=== PATIENT | female | born 1985 | race American Indian/Alaskan Native ===

== ENCOUNTER 2016-11-04 19:52 | Emergency (ER) | payer MEDICAID ==
[2016-11-04 20:25] VITALS: BP 126/78
--- NOTE | 2016-11-05 07:34 | XRay Report ---
LEFT ANKLE RADIOGRAPHS INDICATION: Left ankle lateral pain. Injury while in heels yesterday. COMPARISON: None similar. FINDINGS: AP, lateral and oblique left ankle radiographs demonstrate intact mortise, malleoli and talar dome contour. Mild soft tissue swelling may be present laterally. CONCLUSION: Left ankle soft tissue swelling/injury possible without acute bony abnormality, as described. Please correlate. Thank you for the opportunity to participate in this patient's care.
== END 2016-11-05 00:26 | disposition left against medical advice (07) ==
LOC: ED 19:52
DX: M25.572 Pain in left ankle and joints of left foot (principal); Z53.21 Procedure and treatment not carried out due to patient leaving prior to being seen by health care provider

== ENCOUNTER 2016-12-07 16:42 | Emergency (ER) | payer MEDICAID ==
[2016-12-07 16:51] VITALS: BP 131/87
--- NOTE | 2016-12-07 17:21 | Emergency Department Report ---
<VALERY HEATON - Last Filed: 12/07/16 18:47> ED Female HPI - General Chief complaint: Urogenital-Female Stated complaint: BACK PAIN/UNABLE TO URINATE Time Seen by Provider: 12/07/16 17:20 Source: patient Mode of arrival: Ambulatory Limitations: No Limitations - History of Present Illness Initial comments: Complaining of dysuria for the past 2-1/2 months, patient denies vaginal discharge, dyspareunia, pelvic pain, , or abdominal pain. But patient does complain of new onset bright red vaginal bleeding that started this morning. Patient is A3 area and MD Complaint: vaginal bleeding, dysuria - Related Data Home Medications Medication Instructions Recorded Confirmed Last Taken Amlodipine Besylate [Norvasc] 10 mg PO DAILY 09/20/14 04/22/16 03/24/16 05:00 10mg LORazepam 0.5 mg PO TID 09/20/14 04/22/16 03/23/16 21:00 .05mg Lisinopril 20 mg PO DAILY 09/20/14 04/22/16 03/24/16 05:00 20mg Quetiapine Fumarate [SEROquel XR] 300 mg PO HS 09/20/14 04/22/16 03/23/16 21:00 300mg Allergies Allergy/AdvReac Type Severity Reaction Status Date / Time No Known Allergies Allergy Verified 10/19/15 13:00 ED Review of Systems ROS: Stated complaint: BACK PAIN/UNABLE TO URINATE Other details as noted in HPI Constitutional: denies: chills, fever Eyes: denies: eye pain, eye discharge, vision change ENT: denies: ear pain, throat pain Gastrointestinal: denies: abdominal pain, nausea, vomiting, diarrhea, constipation, hematemesis, melena, hematochezia Genitourinary: other (vaginal bleeding started this morning). denies: urgency, dysuria, frequency, hematuria, discharge, abnormal menses, dyspareunia Musculoskeletal: denies: joint swelling, arthralgia ED Past Medical Hx - Past Medical History Previous Medical History?: Yes Hx Hypertension: Yes (2004) Hx Headaches / Migraines: Yes (MIGRAINES) Hx Psychiatric Treatment: (PTSD bipolar, manic) Hx Tuberculosis: No (POSITIVE SKIN TEST, NEG CXR) - Surgical History Additional Surgical History: - Social History Smoking Status: Current Every Day Smoker Substance Use Type: Alcohol, Marijuana - Medications Home Medications: Home Medications Medication Instructions Recorded Confirmed Last Taken Type Amlodipine Besylate [Norvasc] 10 mg PO DAILY 09/20/14 04/22/16 03/24/16 05:00 History 10mg LORazepam 0.5 mg PO TID 09/20/14 04/22/16 03/23/16 21:00 History .05mg Lisinopril 20 mg PO DAILY 09/20/14 04/22/16 03/24/16 05:00 History 20mg Quetiapine Fumarate [SEROquel XR] 300 mg PO HS 09/20/14 04/22/16 03/23/16 21:00 History 300mg ED Physical Exam - General Limitations: No Limitations General appearance: alert, in no apparent distress - Head Head exam: Present: atraumatic, normocephalic - Eye Eye exam: Present: normal appearance - ENT ENT exam: Present: mucous membranes moist - Neck Neck exam: Present: normal inspection - Respiratory Respiratory exam: Present: normal lung sounds bilaterally. Absent: respiratory distress - Cardiovascular Cardiovascular Exam: Present: regular rate, normal rhythm. Absent: systolic murmur, diastolic murmur, rubs, gallop - GI/Abdominal GI/Abdominal exam: Present: soft, normal bowel sounds. Absent: distended, tenderness, guarding, rebound, rigid - Extremities Exam Extremities exam: Present: normal inspection - Back Exam Back exam: Present: normal inspection, full ROM. Absent: tenderness, CVA tenderness (R), CVA tenderness (L) - Neurological Exam Neurological exam: Present: alert, oriented X3, CN II-XII intact - Psychiatric Psychiatric exam: Present: normal affect, normal mood - Skin Skin exam: Present: warm, dry, intact, normal color. Absent: rash ED Course Vital Signs 12/07/16 16:47 Temperature 98.1 F Pulse Rate 71 Respiratory 20 Rate Blood Pressure 131/87 O2 Sat by Pulse 100 Oximetry - Reevaluation(s) Reevaluation #1: 12/07/16 18:48 Care transferred to GEETA Galan at this time reviewed the patient's history and labs. Patient stable on her room at this time. ED Medical Decision Making - Lab Data Result diagrams: 12/07/16 17:31 12/07/16 17:31 Critical care attestation.: If time is entered above; I have spent that time in minutes in the direct care of this critically ill patient, excluding procedure time. ED Disposition Clinical Impression: Threatened Disposition: DISCHARGED TO HOME OR SELFCARE Condition: Stable Instructions: Threatened Miscarriage (ED) Additional Instructions: Follow-up with ferruler in 24 hours to repeat sonogram. If continuing to have a bleeding and you feel that your lightheadedness or dizzy report back to emergency. Referrals: [facility] [Outside] - 3-5 Days [facility] [place]Outside] - 3-5 Days NELSON PATE MD [Staff Physician] - 24 Hours PRIMARY [facility]ARE, [Primary Care Provider] - 24 Hours Forms: Work/School Release Form(ED) <ALPESH GALAN - Last Filed: 12/07/16 20:17> ED Medical Decision Making - Lab Data Result diagrams: 12/07/16 17:31 12/07/16 17:31 - Medical Decision Making Patient was received from GEETA Heaton. Ultrasound results has been returned with impression; no intrauterine identified this time. Differential diagnosis includes early in the normal or abnormal to include of unknown location/ectopic as well as biting his . Short interval clinical and sonographic follow- up are recommended. Dictated by Dr. Molina. Results has been notified to the patient. Patient was also notified to follow- up with her ferruler in 24 hours for repeat of sono and labs. Patient was instructed that if she continuous heavy bleeding to report back to emergency room. ED Disposition Is pt being admited?: No Does the pt Need Aspirin: No
[2016-12-07 17:58] LABS: Bilirubin,Urine NEG (Negative); Blood,Urine MOD (Negative); Ketones,Urine 20 mg/dL (Negative); Leukocyte Esterase,Urine NEG (Negative); Mucus,Urine FEW /HPF; Nitrite,Urine NEG (Negative); Protein,Urine <15 mg/dL mg/dL (Negative)
[2016-12-07 18:04] LABS: Basophils % (Auto) 0.2 % (0.0-1.8); Eosinophils % (Auto) 0.8 % (0.0-4.3); Hematocrit 39.7 % (30.3-42.9); Hemoglobin 13.3 gm/dl (10.1-14.3); Mean Corpuscular HGB Conc 34 % (30-34); Mean Corpuscular Hemoglobin 36 pg (28-32); Mean Corpuscular Volume 106 fl (79-97); Platelet Count 244 K/mm3 (140-440); Red Blood Count 3.76 M/mm3 (3.65-5.03); Red Cell Distribution Width 13.6 % (13.2-15.2); White Blood Count 10.4 K/mm3 (4.5-11.0)
[2016-12-07 18:17] LABS: Alanine Aminotransferase 12 units/L (7-56); Albumin 4.8 g/dL (3.9-5); Albumin/Globulin Ratio 1.5 %; Alkaline Phosphatase 80 units/L (35-129); Anion Gap 23 mmol/L; BUN/Creatinine Ratio 11.42; Blood Urea Nitrogen 8 mg/dL (7-17); Calcium 9.6 mg/dL (8.4-10.2); Carbon Dioxide 18 mmol/L (22-30); Chloride 103.5 mmol/L (98-107); Glucose 93 mg/dL (65-100); Potassium 3.6 mmol/L (3.6-5.0); Sodium 141 mmol/L (137-145)
--- NOTE | 2016-12-07 19:27 | Ultrasound Report ---
FINAL REPORT EXAM: US OB TRANSVAGINAL HISTORY: preg vag bleed COMPARISONS: None. FINDINGS: Transvaginal grayscale and color Doppler ultrasound evaluation of the pelvis The uterus is anteverted and measures 8.2 x 4.2 x 5.4 cm. Mildly heterogeneous endometrium measures up to approximately 2-3 millimeters in thickness. A 2 millimeter anechoic region is present at the fundal aspect of the endometrium. No obvious gestational sac or other evidence of intrauterine at this time. The ovaries are not visualized on transabdominal or transvaginal examination. IMPRESSION: No intrauterine identified at this time. Differential diagnosis includes early normal or abnormal to include of unknown location/ectopic as well as spontaneous . Short interval clinical and sonographic follow-up are recommended.
--- NOTE | 2016-12-07 19:33 | Ultrasound Report ---
FINAL REPORT EXAM: US OB \T\lt; = 14 WEEKS FETUS HISTORY: preg vag bleed COMPARISONS: None. FINDINGS: Transabdominal grayscale ultrasound evaluation of the pelvis The uterus is anteverted and measures 7.8 x 3.5 x 4.8 cm. Mildly heterogeneous endometrium measures up to approximately 2-3 millimeters in thickness. A 2 millimeter anechoic region is present at the fundal aspect of the endometrium. No obvious gestational sac or other evidence of intrauterine at this time. The ovaries are not visualized on transabdominal or transvaginal examination. IMPRESSION: No intrauterine identified at this time. Differential diagnosis includes early normal or abnormal to include of unknown location/ectopic as well as spontaneous . Short interval clinical and sonographic follow-up are recommended.
== END 2016-12-07 20:29 | disposition home or self-care (01) ==
LOC: ED 16:42
DX: O20.0 Threatened abortion (principal); O16.1 Unspecified maternal hypertension, first trimester; G43.909 Migraine, unspecified, not intractable, without status migrainosus; O99.331 Smoking (tobacco) complicating pregnancy, first trimester; O99.321 Drug use complicating pregnancy, first trimester; F12.10 Cannabis abuse, uncomplicated; F31.9 Bipolar disorder, unspecified; F43.10 Post-traumatic stress disorder, unspecified; Z3A.14 14 weeks gestation of pregnancy
CPT/HCPCS: 36415; 76801; 76817; 80053; 81001; 81025; 84702; 85025

== ENCOUNTER 2016-12-14 21:11 | Emergency (ER) | payer MEDICAID ==
[2016-12-14 22:45] LABS: Bilirubin,Urine NEG (Negative); Blood,Urine NEG (Negative); Ketones,Urine NEG (Negative); Leukocyte Esterase,Urine NEG (Negative); Nitrite,Urine NEG (Negative); Protein,Urine <15 mg/dL mg/dL (Negative); RBC,Urine < 1.0 /HPF (0.0-6.0); Urobilinogen,Urine < 2.0 mg/dL (<2.0); WBC,Urine < 1.0 /HPF (0.0-6.0)
[2016-12-14 23:39] LABS: Hematocrit 37.8 % (30.3-42.9); Hemoglobin 12.6 gm/dl (10.1-14.3); Mean Corpuscular HGB Conc 34 % (30-34); Mean Corpuscular Hemoglobin 36 pg (28-32); Mean Corpuscular Volume 107 fl (79-97); Platelet Count 238 K/mm3 (140-440); Red Blood Count 3.52 M/mm3 (3.65-5.03); Red Cell Distribution Width 13.6 % (13.2-15.2); White Blood Count 7.1 K/mm3 (4.5-11.0)
--- NOTE | 2016-12-14 23:52 | Ultrasound Report ---
FINAL REPORT EXAM: US OB \T\lt; = 14 WEEKS FETUS HISTORY: vag bleed miscarriage TECHNIQUE: Transabdominal pelvic ultrasound was performed in multiple grayscale sonographic images were obtained of the uterus and adnexa. PRIORS: Endovaginal ultrasound 12/14/2016 FINDINGS: Uterus measures approximately 7.9 x 3.7 x 6.8 centimeters. A gestational sac is not identified in the uterus, or elsewhere. Ovaries were not identified. IMPRESSION: 1. Gestational sac is not identified in the uterus, or elsewhere. Possibility of ectopic is not excluded. The patient can be further assessed with serial quantitative beta HCG and repeat ultrasound if indicated. 2. Please refer to report from endovaginal ultrasound from 12/14/2016 for additional information.
--- NOTE | 2016-12-14 23:53 | Ultrasound Report ---
FINAL REPORT EXAM: US OB TRANSVAGINAL HISTORY: vag bleed miscarriage TECHNIQUE: Endovaginal ultrasound was performed. Multiple grayscale sonographic images were obtained of the uterus and adnexa PRIORS: Transabdominal ultrasound from 12/14/2016 and endovaginal ultrasound from 12/07/2016 FINDINGS: Endometrial stripe thickness is approximately 2.6 millimeters. A gestational sac is not identified in the uterus, or elsewhere. No free fluid is seen in the images provided. Right ovary measures approximately 2.2 x 1.4 x 1.8 centimeters. Left ovary was not visualized. IMPRESSION: 1. A gestational sac is not identified in the uterus, or elsewhere. Possibility of ectopic is not excluded. The patient can be further assessed with serial quantitative beta HCG and repeat ultrasound if indicated. 2. Nonvisualization of left ovary. 3. Please refer to report from transabdominal pelvic ultrasound from 12/14/2016 for additional information.
[2016-12-15] MEDS ORDERED: MOTRIN PO ONE (03:41)
[2016-12-15] MEDS ORDERED: NORCO 5/325 PO ONE (03:41)
--- NOTE | 2016-12-15 03:42 | Emergency Department Report ---
ED General Adult HPI - General Chief complaint: Abdominal Pain Stated complaint: MISCARRIAGE/PAIN Time Seen by Provider: 12/15/16 03:29 Source: patient, RN notes reviewed, old records reviewed Mode of arrival: Ambulatory Limitations: No Limitations - History of Present Illness Initial comments: This is a 31-year-old female. She is previously unknown to me. The patient is 9, para 5. The patient presents to the ER with persistent left lower quadrant abdominal pain and reported history of vaginal bleeding. The patient was seen for similar complaints on December 07. At that time, she had an ultrasound which did not demonstrate an intrauterine . Quantitative hCG was 283. Patient presents to the ER with persistent one week of left lower quadrant pain. Complains of cramping and pain. Pain is sharp and achy and located in the left lower quadrant. It decreases with Tylenol, Motrin, and over-the- counter Midol. It increases with palpation. Patient denies fevers, chills, chest pain, shortness of breath. She admits to vaginal bleeding. Admits to minimal dysuria. -: Gradual Location: abdomen Improves with: medication Worsens with: movement Associated Symptoms: denies: confusion, chest pain, cough, diaphoresis, fever/ chills, headaches, loss of appetite, malaise - Related Data Home Medications Medication Instructions Recorded Confirmed Last Taken Amlodipine Besylate [Norvasc] 10 mg PO DAILY 09/20/14 04/22/16 03/24/16 05:00 10mg LORazepam 0.5 mg PO TID 09/20/14 04/22/16 03/23/16 21:00 .05mg Lisinopril 20 mg PO DAILY 09/20/14 04/22/16 03/24/16 05:00 20mg Quetiapine Fumarate [SEROquel XR] 300 mg PO HS 09/20/14 04/22/16 03/23/16 21:00 300mg Previous Rx's Medication Instructions Recorded Last Taken Type Ketorolac [Toradol] 10 mg PO Q6H PRN #20 tablet 12/15/16 Unknown Rx Ondansetron [Zofran Odt] 4 mg PO QID PRN #20 tab.rapdis 12/15/16 Unknown Rx oxyCODONE [Roxicodone] 5 mg PO Q6HR PRN #15 tablet 12/15/16 Unknown Rx Allergies Allergy/AdvReac Type Severity Reaction Status Date / Time No Known Allergies Allergy Verified 10/19/15 13:00 ED Review of Systems ROS: Stated complaint: MISCARRIAGE/PAIN Other details as noted in HPI Constitutional: denies: fever Eyes: denies: vision change ENT: denies: epistaxis Respiratory: denies: cough Cardiovascular: denies: chest pain Gastrointestinal: abdominal pain Genitourinary: as per HPI, abnormal menses Skin: denies: lesions Neurological: denies: weakness Psychiatric: anxiety ED Past Medical Hx - Past Medical History Previous Medical History?: Yes Hx Hypertension: Yes (2004) Hx Headaches / Migraines: Yes (MIGRAINES) Hx Psychiatric Treatment: (PTSD bipolar, manic) Hx Tuberculosis: No (POSITIVE SKIN TEST, NEG CXR) - Surgical History Past Surgical History?: Yes Additional Surgical History: - Social History Smoking Status: Current Every Day Smoker Substance Use Type: None, Marijuana - Medications Home Medications: Home Medications Medication Instructions Recorded Confirmed Last Taken Type Amlodipine Besylate [Norvasc] 10 mg PO DAILY 09/20/14 04/22/16 03/24/16 05:00 History 10mg LORazepam 0.5 mg PO TID 09/20/14 04/22/16 03/23/16 21:00 History .05mg Lisinopril 20 mg PO DAILY 09/20/14 04/22/16 03/24/16 05:00 History 20mg Quetiapine Fumarate [SEROquel XR] 300 mg PO HS 09/20/14 04/22/16 03/23/16 21:00 History 300mg Ketorolac [Toradol] 10 mg PO Q6H PRN #20 tablet 12/15/16 Unknown Rx Ondansetron [Zofran Odt] 4 mg PO QID PRN #20 tab.rapdis 12/15/16 Unknown Rx oxyCODONE [Roxicodone] 5 mg PO Q6HR PRN #15 tablet 12/15/16 Unknown Rx ED Physical Exam - General Limitations: No Limitations General appearance: alert, in no apparent distress - Head Head exam: Present: atraumatic, normocephalic - Eye Eye exam: Present: normal appearance, EOMI. Absent: nystagmus - ENT ENT exam: Present: normal exam, normal orophraynx, mucous membranes moist, normal external ear exam - Neck Neck exam: Present: normal inspection, full ROM. Absent: tenderness, meningismus - Respiratory Respiratory exam: Present: normal lung sounds bilaterally. Absent: respiratory distress, wheezes, rales, rhonchi, stridor, chest wall tenderness, accessory muscle use, decreased breath sounds, prolonged expiratory - Cardiovascular Cardiovascular Exam: Present: regular rate, normal rhythm, normal heart sounds. Absent: bradycardia, tachycardia, irregular rhythm, systolic murmur, diastolic murmur, rubs, gallop - GI/Abdominal GI/Abdominal exam: Present: soft, tenderness, normal bowel sounds, other (there is left lower quadrant tenderness. No rebound, guarding or peritoneal signs). Absent: distended, guarding, rebound, rigid, pulsatile mass - External exam: Present: normal external exam Speculum exam: Present: normal speculum exam. Absent: vaginal bleeding Bi-manual exam: Present: adnexal tenderness, other (escorted by RN radha boone) - Extremities Exam Extremities exam: Present: normal inspection, full ROM, normal capillary refill. Absent: tenderness, pedal edema, calf tenderness - Back Exam Back exam: Present: normal inspection, full ROM. Absent: tenderness, CVA tenderness (R), CVA tenderness (L), muscle spasm, paraspinal tenderness, vertebral tenderness - Neurological Exam Neurological exam: Present: alert, oriented X3, normal gait, other (Extraocular movements intact. Tongue midline. No facial droop. Facial sensation intact to light touch in the V1, V2, V3 distribution bilaterally. 5 and 5 strength in 4 extremities.. Sensation is intact to light touch in 4 extremities.). Absent : motor sensory deficit - Psychiatric Psychiatric exam: Present: normal affect, normal mood - Skin Skin exam: Present: warm, dry, intact, normal color. Absent: rash ED Course Vital Signs 12/14/16 12/15/16 12/15/16 21:39 03:47 03:56 Temperature 98.4 F 98.4 F Pulse Rate 79 60 Respiratory 20 20 Rate Blood Pressure 102/59 Blood Pressure 129/58 [Left] O2 Sat by Pulse 100 100 100 Oximetry 12/15/16 12/15/16 12/15/16 04:08 04:09 05:08 Temperature Pulse Rate Respiratory 20 20 20 Rate Blood Pressure Blood Pressure [Left] O2 Sat by Pulse Oximetry 12/15/16 05:09 Temperature Pulse Rate Respiratory 20 Rate Blood Pressure Blood Pressure [Left] O2 Sat by Pulse Oximetry - Reevaluation(s) Reevaluation #1: 12/15/16 04:12 differential diagnosis: Ovarian cyst, threatened miscarriage, urinary tract infection, dysfunctional uterine bleeding Assessment and plan: 31-year-old female who reports left lower quadrant pain, persistent vaginal bleeding. The patient is afebrile with reassuring vital signs. Quantitative hCG 3.67, this is less than 4, therefore, the patient has most likely completed her miscarriage. Her transabdominal ultrasound today did not demonstrate a gestational sac. Left ovary is not visualized. She is found to be Rh-. The patient will be given RhoGAM. We will perform a gynecologic examination. Her pain will be treated symptomatically. Reevaluation #2: 12/15/16 05:42 Patient tolerating liquid feeds. Mild adnexal tenderness. RhoGAM administered. No fever. Patient will be discharged with pain medication, nausea medication, instructions to follow up with outpatient gynecology. ED Medical Decision Making - Lab Data Result diagrams: 12/14/16 22:55 Vital Signs 12/14/16 12/15/16 12/15/16 21:39 03:47 03:56 Temperature 98.4 F 98.4 F Pulse Rate 79 60 Respiratory 20 20 Rate Blood Pressure 102/59 Blood Pressure 129/58 [Left] O2 Sat by Pulse 100 100 100 Oximetry 12/15/16 12/15/16 04:08 04:09 Temperature Pulse Rate Respiratory 20 20 Rate Blood Pressure Blood Pressure [Left] O2 Sat by Pulse Oximetry Lab Results 12/14/16 12/14/16 12/14/16 Range/Units 22:00 22:46 22:55 WBC 7.1 (4.5-11.0) K/mm3 RBC 3.52 L (3.65-5.03) M/mm3 Hgb 12.6 (10.1-14.3) gm/dl Hct 37.8 (30.3-42.9) % MCV 107 H (79-97) fl MCH 36 H (28-32) pg MCHC 34 (30-34) % RDW 13.6 (13.2-15.2) % Plt Count 238 (140-440) K/mm3 HCG, Quant (0-4) mIU/mL Urine Color Straw (Yellow) Urine Turbidity Clear (Clear) Urine pH 7.0 (5.0-7.0) Ur Specific [place] 1.003 (1.003-1.030) Urine Protein <15 mg/dl (Negative) mg/dL Urine Glucose (UA) Neg (Negative) mg/dL Urine Ketones Neg (Negative) mg/dL Urine Blood Neg (Negative) Urine Nitrite Neg (Negative) Urine Bilirubin Neg (Negative) Urine Urobilinogen < 2.0 (<2.0) mg/dL Ur Leukocyte Esterase Neg (Negative) Urine WBC (Auto) < 1.0 (0.0-6.0) /HPF Urine RBC (Auto) < 1.0 (0.0-6.0) /HPF U Epithel Cells (Auto) < 1.0 (0-13.0) /HPF Blood Type O NEGATIVE Antibody Screen TNR SOLE Antibody Screen Negative 12/14/16 Range/Units 22:55 WBC (4.5-11.0) K/mm3 RBC (3.65-5.03) M/mm3 Hgb (10.1-14.3) gm/dl Hct (30.3-42.9) % MCV (79-97) fl MCH (28-32) pg MCHC (30-34) % RDW (13.2-15.2) % Plt Count (140-440) K/mm3 HCG, Quant 3.67 (0-4) mIU/mL Urine Color (Yellow) Urine Turbidity (Clear) Urine pH (5.0-7.0) Ur Specific [place] (1.003-1.030) Urine Protein (Negative) mg/dL Urine Glucose (UA) (Negative) mg/dL Urine Ketones (Negative) mg/dL Urine Blood (Negative) Urine Nitrite (Negative) Urine Bilirubin (Negative) Urine Urobilinogen (<2.0) mg/dL Ur Leukocyte Esterase (Negative) Urine WBC (Auto) (0.0-6.0) /HPF Urine RBC (Auto) (0.0-6.0) /HPF U Epithel Cells (Auto) (0-13.0) /HPF Blood Type Antibody Screen SOLE Antibody Screen - Radiology Data Radiology results: report reviewed, image reviewed Obstetrics/transvaginal ultrasound demonstrates no evidence of gestational sac. Nonvisualization of the left ovary. Critical care attestation.: If time is entered above; I have spent that time in minutes in the direct care of this critically ill patient, excluding procedure time. ED Disposition Clinical Impression: Abdominal pain Disposition: - TO HOME OR SELFCARE Is pt being admited?: No Does the pt Need Aspirin: No Condition: Stable Instructions: Spontaneous Miscarriage (ED) Additional Instructions: Symptoms most likely coming from dysfunctional uterine bleeding or completed miscarriage. Take the pain medication, nausea medication as directed. Cultures were sent today, results will be available in the next 3-5 days. Have a primary care doctor or javascript engineer contact the medical records department to obtain culture results. Return to the ER right away with new pain, worsened pain, migration of pain, fevers, chills, chest pain, shortness of breath, confusion, intractable nausea or vomiting, inability to tolerate liquid feeds. Prescriptions: Ketorolac [Toradol] 10 mg PO Q6H PRN #20 tablet PRN Reason: Pain Ondansetron [Zofran Odt] 4 mg PO QID PRN #20 tab.rapdis PRN Reason: Nausea oxyCODONE [Roxicodone] 5 mg PO Q6HR PRN #15 tablet PRN Reason: Pain Referrals: PRIMARY CAREMD [Primary Care Provider] - 3-5 Days [facility] [Provider Group] - 3-5 Days [facility] [Provider Group] - 3-5 Days [facility] [Provider Group] - 3-5 Days
[2016-12-15 03:48] VITALS: BP 129/58
== END 2016-12-15 07:10 | disposition home or self-care (01) ==
LOC: ED 21:11
DX: R10.32 Left lower quadrant pain (principal); I10 Essential (primary) hypertension; G43.909 Migraine, unspecified, not intractable, without status migrainosus; F31.9 Bipolar disorder, unspecified; F17.200 Nicotine dependence, unspecified, uncomplicated; F12.10 Cannabis abuse, uncomplicated
CPT/HCPCS: 36415; 76801; 76817; 81001; 84702; 85027; 86850; 86900; 86901; 87210; 87591; 99284; J2790

== ENCOUNTER 2017-04-13 09:46 | Emergency (ER) | payer MEDICAID ==
[2017-04-13 10:36] VITALS: BP 128/79
--- NOTE | 2017-04-13 11:14 | Emergency Department Report ---
HPI - General Chief Complaint: Dental/Oral Time Seen by Provider: 04/13/17 11:09 - HPI HPI: Patient reports that she has abscess in her mouth that's been ongoing. She said she has had toothache and she called dentist and they're not be able to see her on so next . Patient states that she is having pain 10 out of 10 that's achy worse with eating. She denies any fever or chills. Denies any nausea or vomiting. Denies any chest pain or shortness of breath. Denies any difficulty breathing or sore throat. Denies any nasal congestion or sinus congestion. Toothache has been ongoing and abscess started getting worse to her left upper and lower tooth with swelling to her left facial area yesterday. She states that she tried taking some [id number] medication but it did not help. ED Past Medical Hx - Past Medical History Previous Medical History?: Yes Hx Hypertension: Yes (2004) Hx Headaches / Migraines: Yes (MIGRAINES) Hx Psychiatric Treatment: (PTSD bipolar, manic) Hx Tuberculosis: No (POSITIVE SKIN TEST, NEG CXR) - Surgical History Past Surgical History?: Yes Additional Surgical History: - Family History Family history: hypertension - Social History Smoking Status: Current Every Day Smoker Substance Use Type: None Other Social History: Single female - Medications Home Medications: Home Medications Medication Instructions Recorded Confirmed Last Taken Type Amlodipine Besylate [Norvasc] 10 mg PO DAILY 09/20/14 04/22/16 03/24/16 05:00 History 10mg LORazepam 0.5 mg PO TID 09/20/14 04/22/16 03/23/16 21:00 History .05mg Lisinopril 20 mg PO DAILY 09/20/14 04/22/16 03/24/16 05:00 History 20mg Quetiapine Fumarate [SEROquel XR] 300 mg PO HS 09/20/14 04/22/16 03/23/16 21:00 History 300mg Ketorolac [Toradol] 10 mg PO Q6H PRN #20 tablet 12/15/16 Unknown Rx Ondansetron [Zofran Odt] 4 mg PO QID PRN #20 tab.rapdis 12/15/16 Unknown Rx oxyCODONE [Roxicodone] 5 mg PO Q6HR PRN #15 tablet 12/15/16 Unknown Rx Clindamycin [Clindamycin CAP] 300 mg PO Q8H #30 cap 04/13/17 Unknown Rx Fluconazole [Diflucan TAB] 150 mg PO ONCE PRN #1 tablet 04/13/17 Unknown Rx HYDROcodone/APAP 5-325 [[place] 1 each PO Q8HR PRN #15 tablet 04/13/17 Unknown Rx 5/325] Ibuprofen [Motrin] 600 mg PO Q8H PRN #15 tablet 04/13/17 Unknown Rx ED Review of Systems ROS: Stated complaint: ABCESS IN MOUTH Other details as noted in HPI Comment: All other systems reviewed and negative Constitutional: no symptoms reported Eyes: denies: eye pain ENT: dental pain. denies: ear pain, throat pain, congestion Respiratory: no symptoms reported Cardiovascular: denies: chest pain, palpitations, dyspnea on exertion, edema, syncope, paroxysmal nocturnal dyspnea Gastrointestinal: denies: nausea, vomiting Musculoskeletal: denies: back pain, arthralgia Skin: denies: rash Neurological: denies: headache Physical Exam - Physical Exam Vital Signs: Vital Signs 04/13/17 10:32 Temperature 98.1 F Pulse Rate 69 Blood Pressure 128/79 O2 Sat by Pulse 100 Oximetry Respirations of 17 General: This is a 32-year-old female well-nourished well-developed in no acute distress. Physical Exam: Head: Normocephalic, atraumatic, no abrasion, no bruising and no contusion. Eyes: Biateral pupils equal and reactive to light, bilateral EOM intact.. Bilateral conjunctival and sclera without injection, normal accommodation. Ears: Bilateral EAC without any redness drainage or swelling,Bilateral TM pearly grady, bilateral tragus is normal and nontender. No auricular abnormality. No Mastoid bones tenderness. Nose: Moist, normal mucosa. No maxillary or frontal sinus tenderness. Mouth: Moist, no pharyngeal erythema or exudate. No peritonsillar abscess. Uvula is midline and oral airways patent. tongue is normal. Noted dental caries widespread. Multiple missing tooth.. Dental tenderness to left upper and lower back tooth left facial swelling. Positive cellulitis with mild induration. Positive gingivitis. Positive tenderness to gum. Neck: Supple, No Cervical adenopathy, full range of motion and no C-spine tenderness. No swelling or tracheal deviation Cardiovascular: S1, S2. Regular rate and rhythm. No murmur. Capillary refill is less then 3 seconds. Lungs: Clear to auscultate bilaterally. No rhonchi, wheezes or rales. No chest wall tenderness Extremities: No clubbing, cyanosis or edema. +2 pulses. No neurovascular compromise Skin: Clean, dry and intact. No rash or lesions. Psych: Normal mood and behavior. ED Course Vital Signs 04/13/17 10:32 Temperature 98.1 F Pulse Rate 69 Blood Pressure 128/79 O2 Sat by Pulse 100 Oximetry Respirations at 17 - Reevaluation(s) Reevaluation #1: 04/13/17 11:14 Normal ED stay. ED Medical Decision Making - Medical Decision Making Patient here reports that she is having toothache that started worth since yesterday. Physical findings for widespread dental caries probably gingivitis, oral cellulitis and swelling of left facial area. Patient with also multiple missing tooth. I discussed with patient diagnosis and treatment plan and she voiced understanding. I discussed the patient CLINDAMYCIN AND SHE IS REQUESTING DIFLUCAN TO PREVENT YEAST INFECTION. PATIENT WAS UNDERSTANDING THE TREATMENT PLAN AND DIAGNOSIS AND DISCHARGED HOME IN STABLE CONDITION WITH PRESCRIPTION FOR CLINDAMYCIN, DIFLUCAN for yeast PROPHYLAXIS, [place] and Motrin. I also discussed the patient that she needs to call [facility] dental clinic because I think she'll be able to get an appointment at a sooner date. Critical care attestation.: If time is entered above; I have spent that time in minutes in the direct care of this critically ill patient, excluding procedure time. ED Disposition Clinical Impression: Toothache, Gingivitis, Dental caries, Cellulitis and abscess of oral soft tissues Teeth missing due to periodontal disease Qualifiers: Tooth loss class: unspecified tooth loss Qualified Code(s): K08.129 - Complete loss of teeth due to periodontal diseases, unspecified class Disposition: DC-01 TO HOME OR SELFCARE Is pt being admited?: No Does the pt Need Aspirin: No Condition: Stable Instructions: Dental Abscess (ED), Cellulitis (ED), Dental Caries (ED), Gingivitis (ED), Toothache (ED) Additional Instructions: Please call [facility] dental clinic today to schedule an appointment for evaluation and treatment Please do not take [place] while driving or operating heavy machinery as this medication causes drowsiness clindamycin antibiotic as instructed Please gargle twice daily with Listerine mouthwash for gum care. Prescriptions: Clindamycin [Clindamycin CAP] 300 mg PO Q8H #30 cap Fluconazole [Diflucan TAB] 150 mg PO ONCE PRN #1 tablet PRN Reason: Yeast HYDROcodone/APAP 5-325 [[place] 5/325] 1 each PO Q8HR PRN #15 tablet PRN Reason: Pain Ibuprofen [Motrin] 600 mg PO Q8H PRN #15 tablet PRN Reason: Pain Referrals: PRIMARY CARE, [Primary Care Provider] - 2-3 Days [facility] [Outside] - 2-3 Days Forms: Work/School Release Form(ED)
== END 2017-04-13 18:41 | disposition home or self-care (01) ==
LOC: ED 09:46
DX: K05.10 Chronic gingivitis, plaque induced (principal); K12.2 Cellulitis and abscess of mouth; K02.9 Dental caries, unspecified; I10 Essential (primary) hypertension; G43.909 Migraine, unspecified, not intractable, without status migrainosus; F31.9 Bipolar disorder, unspecified; F17.200 Nicotine dependence, unspecified, uncomplicated
CPT/HCPCS: 99282

== ENCOUNTER 2017-06-08 10:28 | Emergency (ER) | payer MEDICAID | END 2017-06-08 10:29 | disposition left against medical advice (07) | LOC: ED 10:28 | DX: N89.8 Other specified noninflammatory disorders of vagina (principal); Z53.21 Procedure and treatment not carried out due to patient leaving prior to being seen by health care provider ==

== ENCOUNTER 2018-11-29 22:33 | Emergency (ER) | payer MEDICAID ==
[2018-11-29 22:39] VITALS: BP 136/79
[2018-11-30] MEDS ORDERED: XYLOCAINE 1% 20 mL INFILTRATI ONE (01:21)
[2018-11-30] MEDS ORDERED: XYLOCAINE 2% INFILTRATI ONE (01:24)
--- NOTE | 2018-11-30 02:06 | Emergency Department Report ---
- General Chief complaint: Skin/Abscess/Foreign Body Stated complaint: BOIL RIGHT ARMPIT Time Seen by Provider: 11/30/18 01:11 Source: patient Mode of arrival: Ambulatory Limitations: No Limitations - History of Present Illness Initial comments: pt is a 33 yo female who presents to the ED with c/o knot to the right axilla that began on 11/27/18. The patient states it has been getting larger. She states she does shave her armpits. The patient states she has a hx of Hidradenitis suppurativa. She states that she had the left axilla exicised and a skin graft placed by a plastic surgeon but has not had the right axilla done. She states she has been to the ER previously where they tried to do an I&D but nothing would drain. she denies any fever or drainage. she is currently 36 weeks . - Related Data Home Medications Medication Instructions Recorded Confirmed Last Taken Amlodipine Besylate [Norvasc] 10 mg PO DAILY 09/20/14 04/22/16 03/24/16 05:00 10mg LORazepam 0.5 mg PO TID 09/20/14 04/22/16 03/23/16 21:00 .05mg Lisinopril 20 mg PO DAILY 09/20/14 04/22/16 03/24/16 05:00 20mg Quetiapine Fumarate [SEROquel XR] 300 mg PO HS 09/20/14 04/22/16 03/23/16 21:00 300mg Previous Rx's Medication Instructions Recorded Last Taken Type Ketorolac [Toradol] 10 mg PO Q6H PRN #20 tablet 12/15/16 Unknown Rx Ondansetron [Zofran Odt] 4 mg PO QID PRN #20 tab.rapdis 12/15/16 Unknown Rx oxyCODONE [Roxicodone] 5 mg PO Q6HR PRN #15 tablet 12/15/16 Unknown Rx Clindamycin [Clindamycin CAP] 300 mg PO Q8H #30 cap 04/13/17 Unknown Rx Fluconazole [Diflucan TAB] 150 mg PO ONCE PRN #1 tablet 04/13/17 Unknown Rx HYDROcodone/APAP 5-325 [[place] 1 each PO Q8HR PRN #15 tablet 04/13/17 Unknown Rx 5/325] Ibuprofen [Motrin] 600 mg PO Q8H PRN #15 tablet 04/13/17 Unknown Rx Acetaminophen [Acetaminophen ER 650 mg PO Q8HR PRN #14 tablet.er 11/30/18 Unknown Rx TAB] cephALEXin [Keflex] 500 mg PO Q12HR 7 Days #14 cap 11/30/18 Unknown Rx Allergies Allergy/AdvReac Type Severity Reaction Status Date / Time No Known Allergies Allergy Verified 10/19/15 13:00 Abscess Boil HPI - HPI Chief Complaint: Skin/Abscess/Foreign Body Stated Complaint: BOIL RIGHT ARMPIT Time Seen by Provider: 11/30/18 01:11 Home Medications: Home Medications Medication Instructions Recorded Confirmed Last Taken Amlodipine Besylate [Norvasc] 10 mg PO DAILY 09/20/14 04/22/16 03/24/16 05:00 10mg LORazepam 0.5 mg PO TID 09/20/14 04/22/16 03/23/16 21:00 .05mg Lisinopril 20 mg PO DAILY 09/20/14 04/22/16 03/24/16 05:00 20mg Quetiapine Fumarate [SEROquel XR] 300 mg PO HS 09/20/14 04/22/16 03/23/16 21:00 300mg Previous Rx's Medication Instructions Recorded Last Taken Type Ketorolac [Toradol] 10 mg PO Q6H PRN #20 tablet 12/15/16 Unknown Rx Ondansetron [Zofran Odt] 4 mg PO QID PRN #20 tab.rapdis 12/15/16 Unknown Rx oxyCODONE [Roxicodone] 5 mg PO Q6HR PRN #15 tablet 12/15/16 Unknown Rx Clindamycin [Clindamycin CAP] 300 mg PO Q8H #30 cap 04/13/17 Unknown Rx Fluconazole [Diflucan TAB] 150 mg PO ONCE PRN #1 tablet 04/13/17 Unknown Rx HYDROcodone/APAP 5-325 [[place] 1 each PO Q8HR PRN #15 tablet 04/13/17 Unknown Rx 5/325] Ibuprofen [Motrin] 600 mg PO Q8H PRN #15 tablet 04/13/17 Unknown Rx Acetaminophen [Acetaminophen ER 650 mg PO Q8HR PRN #14 tablet.er 11/30/18 Unknown Rx TAB] cephALEXin [Keflex] 500 mg PO Q12HR 7 Days #14 cap 11/30/18 Unknown Rx Allergies/Adverse Reactions: Allergies Allergy/AdvReac Type Severity Reaction Status Date / Time No Known Allergies Allergy Verified 10/19/15 13:00 ED Review of Systems ROS: Stated complaint: BOIL RIGHT ARMPIT Other details as noted in HPI Comment: All other systems reviewed and negative ED Past Medical Hx - Past Medical History Previous Medical History?: Yes Hx Hypertension: Yes (2005) Hx Headaches / Migraines: Yes (MIGRAINES) Hx Psychiatric Treatment: (PTSD bipolar, manic) Hx Tuberculosis: No (POSITIVE SKIN TEST, NEG CXR) - Surgical History Past Surgical History?: Yes Additional Surgical History: x1 - Social History Smoking Status: Current Every Day Smoker Substance Use Type: None - Medications Home Medications: Home Medications Medication Instructions Recorded Confirmed Last Taken Type Amlodipine Besylate [Norvasc] 10 mg PO DAILY 09/20/14 04/22/16 03/24/16 05:00 History 10mg LORazepam 0.5 mg PO TID 09/20/14 04/22/16 03/23/16 21:00 History .05mg Lisinopril 20 mg PO DAILY 09/20/14 04/22/16 03/24/16 05:00 History 20mg Quetiapine Fumarate [SEROquel XR] 300 mg PO HS 09/20/14 04/22/16 03/23/16 21:00 History 300mg Ketorolac [Toradol] 10 mg PO Q6H PRN #20 tablet 12/15/16 Unknown Rx Ondansetron [Zofran Odt] 4 mg PO QID PRN #20 tab.rapdis 12/15/16 Unknown Rx oxyCODONE [Roxicodone] 5 mg PO Q6HR PRN #15 tablet 12/15/16 Unknown Rx Clindamycin [Clindamycin CAP] 300 mg PO Q8H #30 cap 04/13/17 Unknown Rx Fluconazole [Diflucan TAB] 150 mg PO ONCE PRN #1 tablet 04/13/17 Unknown Rx HYDROcodone/APAP 5-325 [[place] 1 each PO Q8HR PRN #15 tablet 04/13/17 Unknown Rx 5/325] Ibuprofen [Motrin] 600 mg PO Q8H PRN #15 tablet 10/02/17 Unknown Rx Acetaminophen [Acetaminophen ER 650 mg PO Q8HR PRN #14 tablet.er 11/30/18 Unknown Rx TAB] cephALEXin [Keflex] 500 mg PO Q12HR 7 Days #14 cap 11/30/18 Unknown Rx ED Physical Exam - General Limitations: No Limitations General appearance: alert, in no apparent distress - Head Head exam: Present: atraumatic, normocephalic - Eye Eye exam: Present: normal appearance, PERRL - Respiratory Respiratory exam: Present: normal lung sounds bilaterally. Absent: respiratory distress, wheezes, rales, rhonchi, stridor, chest wall tenderness, accessory muscle use, decreased breath sounds, prolonged expiratory - Cardiovascular Cardiovascular Exam: Present: regular rate, normal rhythm, normal heart sounds. Absent: systolic murmur, diastolic murmur, rubs, gallop - Neurological Exam Neurological exam: Present: alert, oriented X3 - Psychiatric Psychiatric exam: Present: normal affect, normal mood - Skin Skin exam: Present: warm, dry, other (3 cm by 3 cm area of induration to the right axilla, no surrounding cellulitis, no obvious drainage) ED Course Vital Signs 11/29/18 11/30/18 22:37 02:31 Temperature 97.5 F L Pulse Rate 84 68 Respiratory 18 Rate Blood Pressure 136/79 O2 Sat by Pulse 100 100 Oximetry - I & D Right Arm Type of Procedure: Simple Site: right axilla Blade Size: 11 I & D Procedure: betadine prep, sterile drapes applied, sterile dressing applied Progress: betadine prep, 4 cc of 1% lidocaine used, two 1 cm incisions made to the right axilla, no drainage present, no drainage able to be manually expressed, could possibly be cystic structure, sterile dressing applied, pt tolerated well, bleeding well controlled, no complications ED Medical Decision Making - Medical Decision Making pt is a 33 yo female who presents to the ED with c/o knot to the right axilla that began on 11/27/18. The patient states it has been getting larger. She states she does shave her armpits. The patient states she has a hx of Hidradenitis suppurativa. She states that she had the left axilla exicised and a skin graft placed by a plastic surgeon but has not had the right axilla done. She states she has been to the ER previously where they tried to do an I&D but nothing would drain. she denies any fever or drainage. she is currently 36 weeks . attempted I&D with no expression of material, most likely representing a cystic structure. discussed with patient to follow up with her plastic surgeon who did her skin graft on the left axilla. discussed to use warm compresses. follow up with her SURFACING MACHINE OPERATOR in the next 2-3 days. pt placed on keflex. may take tylenol for discomfort. discussed to keep area clean and dry. return to the emergency room immediately for any new or worsening symptoms. Critical care attestation.: If time is entered above; I have spent that time in minutes in the direct care of this critically ill patient, excluding procedure time. ED Disposition Clinical Impression: Hidradenitis Disposition: TO HOME OR SELFCARE Is pt being admited?: No Does the pt Need Aspirin: No Condition: Stable Additional Instructions: Please follow up with your SURFACING MACHINE OPERATOR in the next 2-3 days. Please follow up with your plastic surgeon in the next 2-3 days. please use warm compresses. take all medication as prescribed. return to the emergency room for any new or worsening symptoms. Prescriptions: Acetaminophen [Acetaminophen ER TAB] 650 mg PO Q8HR PRN #14 tablet.er PRN Reason: Pain cephALEXin [Keflex] 500 mg PO Q12HR 7 Days #14 cap Referrals: YASIR SHI MD [Primary Care Provider] - 2-3 Days your, plastic surgeon [Other] - 2-3 Days Forms: Work/School Release Form(ED) Time of Disposition: 02:11 Print Language: AUSTRIAN
[2018-11-30] MEDS ORDERED: TYLENOL ONE (02:28)
[2018-11-30] MEDS ORDERED: TYLENOL PO ONE (02:29)
== END 2018-11-30 02:34 | disposition home or self-care (01) ==
LOC: ED 22:33
DX: L73.2 Hidradenitis suppurativa (principal); I10 Essential (primary) hypertension; G43.909 Migraine, unspecified, not intractable, without status migrainosus; F31.9 Bipolar disorder, unspecified; F17.200 Nicotine dependence, unspecified, uncomplicated; Z79.899 Other long term (current) drug therapy
CPT/HCPCS: 99282

== ENCOUNTER 2020-04-07 20:11 | Emergency (ER) | payer SELFPAY ==
[2020-04-07 20:53] LABS: Basophils % (Auto) 0.3 % (0.0-1.8); Eosinophils # (Auto) 0.2 K/mm3 (0.0-0.4); Eosinophils % (Auto) 2.3 % (0.0-4.3); Hematocrit 31.8 % (30.3-42.9); Hemoglobin 10.5 gm/dl (10.1-14.3); Lymphocytes # (Auto) 3.3 K/mm3 (1.2-5.4); Lymphocytes % (Auto) 50.5 % (13.4-35.0); Mean Corpuscular HGB Conc 33 % (30-34); Mean Corpuscular Volume 103 fl (79-97); Monocytes # (Auto) 0.4 K/mm3 (0.0-0.8); Monocytes % (Auto) 5.9 % (0.0-7.3); Platelet Count 210 K/mm3 (140-440); Red Blood Count 3.09 M/mm3 (3.65-5.03); Red Cell Distribution Width 15.4 % (13.2-15.2)
[2020-04-07 21:29] LABS: Bilirubin,Urine NEG (Negative); Blood,Urine LG (Negative); Color,Urine Yellow (Yellow); Mucus,Urine 3+ /HPF
[2020-04-07 21:30] LABS: RBC,Urine > 182.0 /HPF (0.0-6.0)
--- NOTE | 2020-04-07 22:43 | Ultrasound Report ---
Pelvic ultrasound INDICATION: History of 03/09/2020, question of retained products of conception TECHNIQUE: Transabdominal COMPARISON: None recent FINDINGS: Uterus measures 10.1 cm in length. Endometrial stripe measures 9 mm. No gestational sac is seen. No fluid is seen within the endometrial canal. There is a mildly heterogenous appearance to the endometrial canal with areas of mildly echogenic tissue but without vascularity. This could just rep resent blood products and is nonspecific. I cannot completely rule out the possibility of retained pr oducts of conception based on these findings however but do not have strong evidence. No free fluid is seen. Right ovary measures 2.5 cm in length and shows flow. Left ovary is not visual ized. IMPRESSION: Heterogenous appearance to the endometrial canal in the uterine fundus without a defined collection. See discussion above. Retained products of conception are not fully excluded. Signer Name: Markos Mosher MD Signed: 04/07/2020 10:38 PM Workstation Name: [id number]
[2020-04-07] MEDS ORDERED: IBUPROFEN 800 MG TAB PO ONE (23:08)
--- NOTE | 2020-04-07 23:12 | Emergency Department Report ---
ED General Adult HPI - General Chief complaint: Vaginal Bleeding Stated complaint: VAGINAL BLEEDING X 30MINS Time Seen by Provider: 04/07/20 21:00 Source: patient Mode of arrival: Stretcher Limitations: No Limitations - History of Present Illness Initial comments: 35-year-old -Iranian female presents with complaints of sudden onset of heavy vaginal bleeding today. Patient reports that after taking a bath, she stood up and had significant vaginal bleeding occur and filled up 1 pad within 3 minutes. Patient reports that since then, she has only used 1 pad and also passed a very large blood clot. She does report lower abdominal cramping pain that is intermittent and similar to menstrual cycle pain. Patient states that 1 month ago, she had a medical when she was about 11 or 12 weeks . Patient states at that time she did bleed and passed a large clot within the first 24 hours. She states that she has not had any bleeding or pain since, however she has not followed up with her MAILING SPECIALIST. She denies any fever/chills/sweats, vaginal discharge, dyspareunia, hematuria/urinary frequency/dysuria, diarrhea/constipation, melena/hematochezia, or nausea/vomiting. She rates her current cramping pain as a 5/10 in severity. She is G7, . She denies any chest pain, dizziness, or shortness of breath. - Related Data Home Medications Medication Instructions Recorded Confirmed Last Taken Amlodipine Besylate [Norvasc] 10 mg PO DAILY 09/20/14 04/22/16 03/24/16 05:00 10 mg LORazepam 0.5 mg PO TID 09/20/14 04/22/16 03/23/16 21:00 .05mg Quetiapine Fumarate [SEROquel XR] 300 mg PO HS 09/20/14 04/22/16 03/23/16 21:00 300 mg lisinopriL [Lisinopril] 20 mg PO DAILY 09/20/14 04/22/16 03/24/16 05:00 20 mg Previous Rx's Medication Instructions Recorded Last Taken Type Ketorolac [Toradol] 10 mg PO Q6H PRN #20 tablet 12/15/16 Unknown Rx Ondansetron [Zofran Odt] 4 mg PO QID PRN #20 tab.rapdis 06/05/17 Unknown Rx oxyCODONE [Roxicodone] 5 mg PO Q6HR PRN #15 tablet 12/15/16 Unknown Rx Clindamycin [Clindamycin CAP] 300 mg PO Q8H #30 cap 04/13/17 Unknown Rx Fluconazole (Nf) [Diflucan TAB] 150 mg PO ONCE PRN #1 tablet 04/13/17 Unknown Rx HYDROcodone/APAP 5-325 [Dillon 1 each PO Q8HR PRN #15 tablet 04/13/17 Unknown Rx 5/325] Ibuprofen [Motrin] 600 mg PO Q8H PRN #15 tablet 04/13/17 Unknown Rx Acetaminophen [Acetaminophen ER 650 mg PO Q8HR PRN #14 tablet.er 11/30/18 Unknown Rx TAB] cephALEXin [Keflex] 500 mg PO Q12HR 7 Days #14 cap 11/30/18 Unknown Rx Allergies Allergy/AdvReac Type Severity Reaction Status Date / Time No Known Allergies Allergy Verified 10/19/15 13:00 ED Review of Systems ROS: Stated complaint: VAGINAL BLEEDING X 30MINS Other details as noted in HPI Constitutional: denies: chills, fever Eyes: denies: vision change Respiratory: denies: cough, shortness of breath Cardiovascular: denies: chest pain Endocrine: denies: excessive sweating Gastrointestinal: abdominal pain. denies: nausea, vomiting, diarrhea, constipation, hematemesis, melena, hematochezia Genitourinary: abnormal menses. denies: urgency, dysuria, frequency, hematuria, discharge Musculoskeletal: denies: back pain, arthralgia Skin: denies: rash, lesions Neurological: denies: weakness Hematological/Lymphatic: denies: swollen glands ED Past Medical Hx - Past Medical History Previous Medical History?: Yes Hx Hypertension: Yes (2004) Hx Headaches / Migraines: Yes (MIGRAINES) Hx Psychiatric Treatment: Yes (PTSD bipolar, manic) Hx Tuberculosis: No (POSITIVE SKIN TEST, NEG CXR) - Surgical History Past Surgical History?: Yes Additional Surgical History: x1 - Social History Smoking Status: Current Every Day Smoker Substance Use Type: None - Medications Home Medications: Home Medications Medication Instructions Recorded Confirmed Last Taken Type Amlodipine Besylate [Norvasc] 10 mg PO DAILY 09/20/14 04/22/16 03/24/16 05:00 History 10 mg LORazepam 0.5 mg PO TID 09/20/14 04/22/16 03/23/16 21:00 History .05mg Quetiapine Fumarate [SEROquel XR] 300 mg PO HS 09/20/14 04/22/16 03/23/16 21:00 History 300 mg lisinopriL [Lisinopril] 20 mg PO DAILY 09/20/14 04/22/16 03/24/16 05:00 History 20 mg Ketorolac [Toradol] 10 mg PO Q6H PRN #20 tablet 12/15/16 Unknown Rx Ondansetron [Zofran Odt] 4 mg PO QID PRN #20 tab.rapdis 12/15/16 Unknown Rx oxyCODONE [Roxicodone] 5 mg PO Q6HR PRN #15 tablet 12/15/16 Unknown Rx Clindamycin [Clindamycin CAP] 300 mg PO Q8H #30 cap 04/13/17 Unknown Rx Fluconazole (Nf) [Diflucan TAB] 150 mg PO ONCE PRN #1 tablet 04/13/17 Unknown Rx HYDROcodone/APAP 5-325 [Dillon 1 each PO Q8HR PRN #15 tablet 04/13/17 Unknown Rx 5/325] Ibuprofen [Motrin] 600 mg PO Q8H PRN #15 tablet 04/13/17 Unknown Rx Acetaminophen [Acetaminophen ER 650 mg PO Q8HR PRN #14 tablet.er 11/30/18 Unknown Rx TAB] cephALEXin [Keflex] 500 mg PO Q12HR 7 Days #14 cap 11/30/18 Unknown Rx ED Physical Exam - General Limitations: No Limitations General appearance: alert, in no apparent distress - Head Head exam: Present: atraumatic, normocephalic - Eye Eye exam: Present: normal appearance. Absent: scleral icterus - Neck Neck exam: Present: normal inspection - Respiratory Respiratory exam: Present: normal lung sounds bilaterally. Absent: respiratory distress - Cardiovascular Cardiovascular Exam: Present: regular rate, normal rhythm. Absent: systolic murmur, diastolic murmur, rubs, gallop - GI/Abdominal GI/Abdominal exam: Present: soft, tenderness (Minimal left lower quadrant), normal bowel sounds. Absent: distended, guarding, rebound, rigid - Extremities Exam Extremities exam: Present: normal inspection, full ROM - Back Exam Back exam: Present: normal inspection - Neurological Exam Neurological exam: Present: alert, oriented X3 - Psychiatric Psychiatric exam: Present: normal affect, normal mood - Skin Skin exam: Present: warm, dry, intact, normal color. Absent: rash, cyanosis, diaphoretic, ecchymosis ED Course Vital Signs 04/07/20 20:30 Temperature 98.7 F Pulse Rate 90 Respiratory 18 Rate Blood Pressure 122/63 O2 Sat by Pulse 100 Oximetry ED Medical Decision Making - Lab Data Result diagrams: 04/07/20 20:40 Lab Results 04/07/20 04/07/20 04/07/20 Range/Units 20:40 20:40 20:40 WBC 6.6 (4.5-11.0) K/mm3 RBC 3.09 L (3.65-5.03) M/mm3 Hgb 10.5 (10.1-14.3) gm/dl Hct 31.8 (30.3-42.9) % MCV 103 H (79-97) fl MCH 34 H (28-32) pg MCHC 33 (30-34) % RDW 15.4 H (13.2-15.2) % Plt Count 210 (140-440) K/mm3 Lymph % (Auto) 50.5 H (13.4-35.0) % Weber % (Auto) 5.9 (0.0-7.3) % Eos % (Auto) 2.3 (0.0-4.3) % Baso % (Auto) 0.3 (0.0-1.8) % Lymph # (Auto) 3.3 (1.2-5.4) K/mm3 Weber # (Auto) 0.4 (0.0-0.8) K/mm3 Eos # (Auto) 0.2 (0.0-0.4) K/mm3 Baso # (Auto) 0.0 (0.0-0.1) K/mm3 Seg Neutrophils % 41.0 (40.0-70.0) % Seg Neutrophils # 2.7 (1.8-7.7) K/mm3 HCG, Quant 8.85 H (0-4) mIU/mL Urine Color (Yellow) Urine Turbidity (Clear) Urine pH (5.0-7.0) Ur Specific [place] (1.003-1.030) Urine Protein (Negative) mg/dL Urine Glucose (UA) (Negative) mg/dL Urine Ketones (Negative) mg/dL Urine Blood (Negative) Urine Nitrite (Negative) Urine Bilirubin (Negative) Urine Urobilinogen (<2.0) mg/dL Ur Leukocyte Esterase (Negative) Urine WBC (Auto) (0.0-6.0) /HPF Urine RBC (Auto) (0.0-6.0) /HPF U Epithel Cells (Auto) (0-13.0) /HPF Urine Mucus /HPF Blood Type O NEGATIVE 04/07/20 Range/Units 21:15 WBC (4.5-11.0) K/mm3 RBC (3.65-5.03) M/mm3 Hgb (10.1-14.3) gm/dl Hct (30.3-42.9) % MCV (79-97) fl MCH (28-32) pg MCHC (30-34) % RDW (13.2-15.2) % Plt Count (140-440) K/mm3 Lymph % (Auto) (13.4-35.0) % Weber % (Auto) (0.0-7.3) % Eos % (Auto) (0.0-4.3) % Baso % (Auto) (0.0-1.8) % Lymph # (Auto) (1.2-5.4) K/mm3 Weber # (Auto) (0.0-0.8) K/mm3 Eos # (Auto) (0.0-0.4) K/mm3 Baso # (Auto) (0.0-0.1) K/mm3 Seg Neutrophils % (40.0-70.0) % Seg Neutrophils # (1.8-7.7) K/mm3 HCG, Quant (0-4) mIU/mL Urine Color Yellow (Yellow) Urine Turbidity Slightly-cloudy (Clear) Urine pH 6.0 (5.0-7.0) Ur Specific [place] 1.030 (1.003-1.030) Urine Protein 100 mg/dl (Negative) mg/dL Urine Glucose (UA) Neg (Negative) mg/dL Urine Ketones Tr (Negative) mg/dL Urine Blood Lg (Negative) Urine Nitrite Neg (Negative) Urine Bilirubin Neg (Negative) Urine Urobilinogen 4.0 (<2.0) mg/dL Ur Leukocyte Esterase Tr (Negative) Urine WBC (Auto) 5.0 (0.0-6.0) /HPF Urine RBC (Auto) > 182.0 (0.0-6.0) /HPF U Epithel Cells (Auto) 2.0 (0-13.0) /HPF Urine Mucus 3+ /HPF Blood Type - Radiology Data Radiology results: report reviewed Pelvic ultrasound INDICATION: History of 03/09/2020, question of retained products of conception TECHNIQUE: Transabdominal COMPARISON: None recent FINDINGS: Uterus measures 10.1 cm in length. Endometrial stripe measures 9 mm. No gestational sac is seen. No fluid is seen within the endometrial canal. There is a mildly hete rogenous appearance to the endometrial canal with areas of mildly echogenic tissue but without vasc ularity. This could just represent blood products and is nonspecific. I cannot completely rule out the possibility of retained products of conception based on these findings however but do not have strong evidence. No free fluid is seen. Right ovary measures 2.5 cm in length and shows flow. Lef t ovary is not visualized. IMPRESSION: Heterogenous appearance to the endometrial canal in the uterine fundus without a defined collection. See discussion above. Retained products of conception are not fully excluded. - Medical Decision Making 35-year-old -Iranian female presents with complaints of sudden onset of heavy vaginal bleeding today. Patient reports that after taking a bath, she stood up and had significant vaginal bleeding occur and filled up 1 pad within 3 minutes. Patient reports that since then, she has only used 1 pad and also passed a very large blood clot. She does report lower abdominal cramping pain that is intermittent and similar to menstrual cycle pain. Patient states that 1 month ago, she had a medical when she was about 11 or 12 weeks . Patient states at that time she did bleed and passed a large clot within the first 24 hours. She states that she has not had any bleeding or pain since, however she has not followed up with her MAILING SPECIALIST. She denies any fever/chills/sweats, vaginal discharge, dyspareunia, hematuria/urinary frequency/dysuria, diarrhea/constipation, melena/hematochezia, or nausea/v omiting. She rates her current cramping pain as a 5/10 in severity. She is G7, . Minimal suprapubic tenderness noted on exam. Abdomen is soft and nondistended without guarding or rebound. H&H is stable on CBC. UA is normal. Beta hCG is 8.8 which is expected given 1 month ago for ultrasound states retained products of misconception cannot be ruled out, however are unlikely. Patient states she is no longer bleeding heavy. She is non-tachycardic and afebrile and denies any dizziness or shortness of breath. Recommended that pelvic exam be performed, patient declined stating she would like to follow-up with her MAILING SPECIALIST. She is well-appearing and stable for discharge home. Patient instructed to follow-up within 2 days. Strict return precautions were discussed in great de tail with patient who verbalized understanding. Critical care attestation.: If time is entered above; I have spent that time in minutes in the direct care of this critically ill patient, excluding procedure time. ED Disposition Clinical Impression: Vaginal bleeding Disposition: DC-01 TO HOME OR SELFCARE Is pt being admited?: No Condition: Stable Instructions: Dysfunctional Uterine Bleeding (ED) Additional Instructions: Please follow-up with your MAILING SPECIALIST within 2 days. If you develop new or worsenin g symptoms seek immediate emergency treatment.
[2020-04-07 23:52] VITALS: BP 123/70
[2020-04-07 23:54] LABS: Alanine Aminotransferase 10 units/L (7-56); Albumin 4.4 g/dL (3.9-5); Blood Urea Nitrogen 11 mg/dL (7-17); Hemolysis Index 5
[2020-04-08] LABS: BUN/Creatinine Ratio 16; Bilirubin,Direct < 0.2 mg/dL (0-0.2)
== END 2020-04-07 23:43 | disposition home or self-care (01) ==
LOC: ED 20:11
DX: N93.9 Abnormal uterine and vaginal bleeding, unspecified (principal); R10.2 Pelvic and perineal pain; I10 Essential (primary) hypertension; G43.909 Migraine, unspecified, not intractable, without status migrainosus; F43.11 Post-traumatic stress disorder, acute; F17.200 Nicotine dependence, unspecified, uncomplicated; F31.9 Bipolar disorder, unspecified; Z79.899 Other long term (current) drug therapy; Z98.890 Other specified postprocedural states
CPT/HCPCS: 36415; 76830; 80048; 80076; 81001; 84702; 85025; 86900; 86901